=== PATIENT | female | born 1985 | race Two or more races ===

== ENCOUNTER 2024-09-30 08:50 | Emergency (ER) | payer OTHER ==
[~2024-09-30] VITALS: Ht 167.6 cm; Wt 58.5 kg
[2024-09-30 09:13] LABS: PLATELET COUNT (AUTO) 304 K/uL (150-450); RED BLOOD CELL COUNT(AUTO) 4.79 MIL/uL (4.0-5.2); RED CELL DISTRIBUTION WIDTH 16.8 % (11.5-15.0); WHITE BLOOD COUNT (AUTO) 5.1 K/uL (4.3-11.0)
[2024-09-30 09:22] LABS: APPEARANCE,URINE CLEAR (CLEAR); BLOOD, URINE NEGATIVE Ery/uL (NEGATIVE); LEUKOCYTE ESTERASE ,URINE NEGATIVE (NEGATIVE); NITRITE, URINE NEGATIVE (NEGATIVE); UGLUCOSE NEGATIVE (NEGATIVE)
[2024-09-30 09:22] LABS: CALCIUM, SERUM 9.1 mg/dL (8.5-10.1); CREATININE 0.5 mg/dL (0.6-1.3); SODIUM SERUM 138.0 mmol/L (136-145); UREA NITROGEN, BLOOD 8.0 mg/dL (7-18)
[2024-09-30 09:27] LABS: ASPARTATE AMINOTRANSFERASE 14.0 U/L (15-37); TOTAL PROTEIN, SERUM 8.1 g/dL (6.4-8.2)
[2024-09-30 09:28] LABS: PREGNANCY TEST URINE QUAL NEGATIVE (NEGATIVE)
[2024-09-30] MEDS ORDERED: IBUP-1955 PO (09:34)
[2024-09-30 09:46] VITALS: BP 127/78; TEMP 98.5; O2SAT 98
[2024-09-30] MEDS ORDERED: IBUPROFEN 600 MG TABLET PO ONE (10:00)
== END 2024-09-30 09:47 | disposition home or self-care (01) ==
LOC: ER 08:59
DX: R10.2 Pelvic and perineal pain (principal); M54.9 Dorsalgia, unspecified; Z87.42 Personal history of other diseases of the female genital tract; Z60.2 Problems related to living alone
CPT/HCPCS: 36415; 76856-TC; 80048-TC; 80076-TC; 83690-TC; 84703-TC; 85025-TC